=== PATIENT | female | born 1965 | race Caucasian/White ===

== ENCOUNTER 2019-09-27 10:45 | Observation (INO) | payer MEDICARE, OTHER ==
[~2019-09-27] VITALS: Ht 162.6 cm; Wt 52.9 kg
[2019-09-27] MEDS ORDERED: TRAM50 PO (11:19)
[2019-09-27] MEDS ORDERED: DULOXETINE HCL60 M1 PO (11:19)
[2019-09-27] MEDS ORDERED: OMEP20ER PO (11:20)
[2019-09-27] MEDS ORDERED: TRAZODONE HYDROCHLOR (11:20)
[2019-09-27 11:25] LABS: Source, Urine Catheter
[2019-09-27 11:29] LABS: BASOPHILS ABSOLUTE AUTO 0.04 K/mm3 (0.00-0.23); BASOPHILS PERCENT AUTO 1 % (0-2); EOSINOPHILS ABSOLUTE AUTO 0.03 K/mm3 (0.00-0.68); EOSINOPHILS PERCENT AUTO 0 % (0-6); Hemoglobin 13.5 g/dL (11.5-16.0); IMMATURE GRAN ABSOLUTE AUTO 0.03 K/mm3 (0.00-0.10); IMMATURE GRAN PERCENT AUTO 0 % (0-1); LYMPHOCYTES ABSOLUTE AUTO 2.67 K/mm3 (0.84-5.20); LYMPHOCYTES PERCENT AUTO 38 % (21-46); MONOCYTES PERCENT AUTO 7 % (4-13); Mean Corpuscular HGB 29.2 pg (26.0-34.0); Mean Corpuscular HGB Conc 32.9 g/dL (31.5-36.5); Mean Corpuscular Volume 89 fL (80-100); Mean Platelet Volume 10.7 fL (9.1-12.4); NEUTROPHILS ABSOLUTE AUTO 3.75 K/mm3 (1.96-9.15); NEUTROPHILS PERCENT AUTO 54 % (41-73); Platelet Count 264 K/mm3 (150-400); RDW Coefficient Variation 12.8 % (11.7-14.2); RDW Standard Deviation 41.5 fL (35.1-46.3); Red Blood Cell Count 4.63 M/mm3 (3.80-5.20); White Blood Cell Count 7.02 K/mm3 (4.00-11.30)
[2019-09-27 11:37] LABS: Appearance, Urine Clear (Clear); Bilirubin, Urine Neg (Neg); Blood, Urine Neg (Neg); Color, Urine Yellow (P-Yellow); Glucose Qualitative, Urine Neg (Neg); Ketones, Urine 2+ (Neg); Leukocyte Esterase, Urine Neg (Neg); Nitrite, Urine Neg (Neg); Protein, Urine Neg (Neg); Urobilinogen, Urine NORM (Normal)
[2019-09-27 11:42] LABS: Alanine Aminotransfer (ALT/SGP 22 U/L (12-78); Albumin, Blood 4.5 g/dL (3.4-5.0); Albumin/Globulin Ratio 1.2 (0.8-1.8); Alk Phos 87 U/L (50-136); Anion Gap 6 mmol/L (6-16); Aspartate Aminotrans (AST/SGOT 29 U/L (12-37); Bilirubin, Total 0.5 mg/dL (0.1-1.0); Blood Urea Nitrogen 12 mg/dL (8-24); Bun/Creatinine Ratio 18.5 (12.0-20.0); CO2, Blood 25 mmol/L (21-32); Calcium, Blood 9.3 mg/dL (8.5-10.1); Chloride, Blood 105 mmol/L (98-108); Creatinine, Blood 0.65 mg/dL (0.40-1.00); Ethanol (Alcohol), Blood, Med <3 mg/dL; Globulin, Blood 3.6 g/dL (2.2-4.0); Glomerular Filtration Rate >60 (60-); Glucose, Blood 99 mg/dL (70-99); Potassium, Blood 3.5 mmol/L (3.5-5.5); Sodium, Blood 136 mmol/L (136-145); Total Protein, Blood 8.1 g/dL (6.4-8.2)
[2019-09-27 11:53] LABS: U Amphetamine Screen Not Detected; U Barbituate Screen Not Detected; U Benzodiazapine Screen Not Detected; U Buprenorphine Screen Not Detected; U Cannabinoids Screen Not Detected; U Cocaine Screen Not Detected; U Methadone Screen Not Detected; U Methamphetamine Screen Not Detected; U Opiates Screen Not Detected; U Oxycodone Screen Not Detected; U Phencyclidine Screen Not Detected; U Propoxyphene Screen Not Detected
[2019-09-27] MEDS ORDERED: TRAZ50 PO (13:55)
[2019-09-27] MEDS ORDERED: PREGABALIN150 MG PO (13:57)
--- NOTE | 2019-09-27 17:09 | NUR ---
SHIFT SUMMARY. SPOKE WITH DR. ROBB ABOUT GETTING THE CIWA SCALE ORDERED BUT AT THIS TIME I DO NOT THINK THAT SHE NEEDS TO BE MEDICATED ALTHOUGH HER CIWA SCORE IS A 10. SHE HAS A HISTORY OF ANXIETY ALTHOUGH BEING ADMITTED TO THE HOSPITAL AND HAVING THE INABILITY TO EXPRESS HER CONCERNS HAS MADE HER ANXIETY HARDER. SHE IS OVER 24 HOURS OUT FROM HER LAST DRINK AND HAS A HISTORY OF ALCOHOL WITHDRAWAL AND REHABILITATION FOR BOTH ETOH AND DRUGS.
--- NOTE | 2019-09-27 21:24 | NUR ---
2018 PT A/O X2 TO SELF AND FAMILY. PT'S DAUGHTER AT BEDSIDE THIS TIME. I ASKED PT IF SHE KNEW WHERE SHE WAS, SHE HAS A VERY HARD TIME COMING UP WITH AN ANSWER AND DID NOT ANSWER. IT WAS ALMOST LIKE SHE WANTED TO SAY SOMETHING, BUT SOMETHING IS BLOCKING HER THOUGHTS. I GAVE HER OPTIONS OF IF SHE WAS AT A [facility], [facility], OR [facility]. SHE STATED [facility]. DAUGHTER AT BEDSIDE STATES PT GETS DISTRACTED FROM ROOM LIGHT BEING ON. ROOM LIGHT WAS SHUT OFF AND THEN PT WAS ABLE TO SAY SHE IS AT "[facility]". DAUGHTER REPORTS PT HAS HEIGHTENED SENSES. PT'S VISION HAS BEEN SENSITIVE TO THE COLORS GREEN AND RED RECENTLY. THE WRITING ON THE WHITEBOARD IN PT'S ROOM WAS WRITTEN IN RED. STAFF CHANGED WRITING TO BLACK MARKER. PT ALSO HAS A STRANGE AFFECT. WHEN I ASKED HER QUESTIONS, SHE CANNOT COME UP WITH AN ANSWER AND GIGGLES. CIWA SCORE OF 7. DAUGHTER STATES LAST DRINK WAS ON SATURDAY OR SATURDAY (09/24, 09/25). DAUGHTER NOT SURE HOW MUCH PT DRINKS BUT DAUGHTER REPORTS PT DRINKS EVERYDAY. PT APPEARS CALM LAYING IN BED. RECENTLY, PT HAS BEEN MOSTLY AFFECTED BY COLORS SUCH GREENS AND REDS. EVEN THE LITTLE LIGHTS ON SIDERAILS BOTHERS PT. PILLOWS WERE PROVIDED TO COVER UP THOSE LIGHTS. BED ALARM ON. WILL CONTINUE TO MONITOR. PT ALSO FEELS ITCHING AND BURNING ON SKIN. SCHEDULED BENADRYL GIVEN. PRN TYLENOL GIVEN FOR CHORNIC BACK PAIN.
--- NOTE | 2019-09-28 05:11 | NUR ---
[employer] PRINCIPAL SUMMARY PT A/O X3-4 THIS MORNING. HOWEVER IT TOOK PT A LONG TIME TO RESPOND AND TOOK ME A COUPLE TIMES TO ASK THE SAME QUESTION TO GET A RESPONSE. AT FIRST WHEN I ASKED PATIENT FOR HER NAME, SHE JUST GIGGLED AND STARED AT ME. WHEN PT WAS TAKEN TO THE BATHROOM WITH STANDBY ASSISTANCE OF CHEMICAL SALES REPRESENTATIVE. PT SAID "OW, THAT HURT YOU PINCHED ME" REAL LOUDLY WHEN CHEMICAL SALES REPRESENTATIVE DID NOT TOUCH PATIENT. WHEN PATIENT GOT BACK INTO BED, SHE STATED SHE WANTED "ICE". I ASKED PT IF SHE WANTED ICE TO CHEW ON OR ICE FOR PAIN, PT DID NOT ANSWER. I ASKED HER A SECOND TIME AND A THIRD TIME AND SHE RESPONDS WITH "I AM COLD". I COVERED PT UP WITH 2 BLANKETS. PT TOOK OFF TOP BLANKET AND DID NOT WANT IT. PT STATES HER HANDS ARE COLD. I COVERED HER HANDS TO WHICH SHE RESPONDS WITH "NO" AND UNCOVERS THEM. PT HAS VERY CONCRETE THINKING. CIWA SCORE OF 3 THIS MORNING. PT HAS HEIGHTEND SENSES TO SMELL AND SIGHT. PLEASE SEE PREVIOUS NOTE.
[2019-09-28 05:28] LABS: Hematocrit 39.6 % (33.0-51.0); Hemoglobin 12.6 g/dL (11.5-16.0); Mean Corpuscular HGB 28.4 pg (26.0-34.0); Mean Corpuscular HGB Conc 31.8 g/dL (31.5-36.5); Mean Corpuscular Volume 89 fL (80-100); Mean Platelet Volume 11.2 fL (9.1-12.4); Platelet Count 248 K/mm3 (150-400); RDW Coefficient Variation 13.2 % (11.7-14.2); Red Blood Cell Count 4.44 M/mm3 (3.80-5.20)
[2019-09-28 06:20] LABS: Anion Gap 6 mmol/L (6-16); Blood Urea Nitrogen 11 mg/dL (8-24); Bun/Creatinine Ratio 14.9 (12.0-20.0); CO2, Blood 23 mmol/L (21-32); Calcium, Blood 8.9 mg/dL (8.5-10.1); Chloride, Blood 113 mmol/L (98-108); Creatinine, Blood 0.74 mg/dL (0.40-1.00); Glomerular Filtration Rate >60 (60-); Glucose, Blood 96 mg/dL (70-99); Sodium, Blood 142 mmol/L (136-145)
--- NOTE | 2019-09-28 17:31 | NUR ---
PATIENT CONTINUES TO HAVE AMS. WHEN QUESTIONED CONTINUES TO HAVE INAPPROPRIATE RESPONSES AND TENDS TO GIGGLE OR JUST STARE AT TIMES NOT RESPONDING. OTHER TIMES SHE CAN ANSWER APPROPRIATELY, BUT IS VERY SLOW TO RESPOND. SHE DESCRIBES HER VISION AT "HOT" OR "RED." PATIENT VERY NAUSEATED WITH ANY FOOD. HYPERSENSTIVE TO LIGHT, SMELL, TOUCH AND CERTAIN BRIGHT COLORS. VERY ANXIOUS THIS EVENING AND PAINFUL. SPOKE WITH DR. CASTRO WHO ORDERED TO CONTINUE TO GIVE TORADOL AND TYLENOL AND RESTART CYMBALTA AND OMEPRAZOLE. HEAT PACK GIVEN TO EASE PAIN. DAUGHTER ZULLY AND PATIENTS SISTER AT BEDSIDE INTERMITTENTLY THROUGHOUT THE DAY. 20G IV TO L FA WNL AND SL. SKIN INTACT. VSS, ON RA. ZOFRAN WORKED WELL TO TREAT NAUSEA. TAKES PILLS WHOLE WITH WATER. GAIT STEADY, SBA DUE TO MENTATION.
[2019-09-29 05:51] LABS: BASOPHILS ABSOLUTE AUTO 0.03 K/mm3 (0.00-0.23); BASOPHILS PERCENT AUTO 0 % (0-2); EOSINOPHILS ABSOLUTE AUTO 0.02 K/mm3 (0.00-0.68); EOSINOPHILS PERCENT AUTO 0 % (0-6); Hematocrit 38.3 % (33.0-51.0); Hemoglobin 12.4 g/dL (11.5-16.0); IMMATURE GRAN ABSOLUTE AUTO 0.02 K/mm3 (0.00-0.10); IMMATURE GRAN PERCENT AUTO 0 % (0-1); LYMPHOCYTES ABSOLUTE AUTO 2.43 K/mm3 (0.84-5.20); LYMPHOCYTES PERCENT AUTO 33 % (21-46); MONOCYTES ABSOLUTE AUTO 0.85 K/mm3 (0.16-1.47); MONOCYTES PERCENT AUTO 12 % (4-13); Mean Corpuscular HGB 28.5 pg (26.0-34.0); Mean Corpuscular HGB Conc 32.4 g/dL (31.5-36.5); Mean Corpuscular Volume 88 fL (80-100); Mean Platelet Volume 11.1 fL (9.1-12.4); NEUTROPHILS ABSOLUTE AUTO 3.98 K/mm3 (1.96-9.15); NEUTROPHILS PERCENT AUTO 54 % (41-73); Platelet Count 244 K/mm3 (150-400); RDW Standard Deviation 42.6 fL (35.1-46.3); Red Blood Cell Count 4.35 M/mm3 (3.80-5.20); White Blood Cell Count 7.33 K/mm3 (4.00-11.30)
--- NOTE | 2019-09-29 06:11 | NUR ---
SHIFT SUMMARY- PT. ALERT BUT DISORIENTED AND SLOW TO RESPOND. NOTED TO BE ANXIOUS AND AGITATED LAST NIGHT. C/O GENERALIZED PAIN, CIWA OF 19 @1721 AND PM CIWA SCORE OF 11. NOTIFIED HOSPITALIST DR. ATKINSON, RECEIVED CIWA MED ORDER. MEDICATED PT. WITH ATIVAN AND PAIN MED PER EMAR WITH GOOD EFFECT. FOLLOWING CIWA SCORE 10, PT. MEDICATED WITH SECOND DOSE OF ATIVAN WITH GOOD RELIEF. PT. WAS ABLE TO SLEEP THE REST OF THE NIGHT. REASSESSMENT OF CIWA NEG. PT. UP TO THE BATHROOM X1 ABLE TO VOID W/O DIFFICULTY, ASSISTED BACK INTO BED. PT. RESTING QUIETLY IN BED AT THIS TIME, NO APPARENT DISTRESS NOTED. CALL LIGHT WITHIN REACH AND SIDE RAILS UPX2. WILL CONT TO MONITOR.
[2019-09-29 06:19] LABS: Alanine Aminotransfer (ALT/SGP 20 U/L (12-78); Albumin, Blood 3.8 g/dL (3.4-5.0); Albumin/Globulin Ratio 1.1 (0.8-1.8); Alk Phos 72 U/L (50-136); Anion Gap 5 mmol/L (6-16); Aspartate Aminotrans (AST/SGOT 20 U/L (12-37); Bilirubin, Total 0.5 mg/dL (0.1-1.0); Blood Urea Nitrogen 20 mg/dL (8-24); Bun/Creatinine Ratio 26.1 (12.0-20.0); CO2, Blood 24 mmol/L (21-32); Calcium, Blood 9.2 mg/dL (8.5-10.1); Chloride, Blood 114 mmol/L (98-108); Creatinine, Blood 0.77 mg/dL (0.40-1.00); Globulin, Blood 3.4 g/dL (2.2-4.0); Glomerular Filtration Rate >60 (60-); Glucose, Blood 97 mg/dL (70-99); Potassium, Blood 3.8 mmol/L (3.5-5.5); Sodium, Blood 143 mmol/L (136-145); Total Protein, Blood 7.2 g/dL (6.4-8.2)
--- NOTE | 2019-09-29 16:59 | NUR ---
ASSUMED PT CARE. TRANSFER FROM SCU RM 352 TO MED 338 PT AMBULATE TO ROOM ACCOMPANIED BY SONJA MCKNIGHT RN & PT'S SISTER. SHE IS A/O X3 @ THIS TIME, INTERACTING w SISTER, LUZ MARIA @ INTRODUCTION. REPORT RECIEVED.
--- NOTE | 2019-09-29 17:07 | NUR ---
SHIFT SUMMARY PATIENT MEDICATED X1 FOR PAIN AND X2 FOR NAUSEA. DENIES SHORTNESS OF BREATH. PATIENT UP SBA W/FWW. PATIENT ANSWERS ORIENTATION QUESTIONS CORRECTLY BUT CAN BE CONFUSED AT TIMES. CIWAS BETWEEN 4 AND 5 TODAY. FAMILY AT BEDSIDE. TRAE CONSULTED. PATIENT TRANSFERED OUT OF SCU TO MAIN FLOOR. POSSIBLE DISCHARGE TOMORROW. REPORT GIVEN TO JOE MORROW.
--- NOTE | 2019-09-29 22:33 | NUR ---
ANGELICA Whalen called on CIWA score of 19 due to nausea & reported dry heaves headache light sensitivity anxiety & restlessness & unsure of month or day but able to add serial additions quickly. Medicated with the PRN melatonin 3 mg To promote sleep. Family at bedside & supportive. PT recently moved from [facility] to live with Sister Elisha who would like PT to be DC to rehab center for substance abuse treatment. PT has several other Sisters here & DTR at bedside. PT using 14 mg nicotine patch asks for nicotine gum for tobacco addiction. CO very poor oral intake has dark jim urine. CO burning with urination. Request for UA declined, encourage oral fluids. Provided ensure & pudding at bedside. Up in hallway ambulating with FWW with steady gait. PT CO headache of 9/10 despite tylenol 650 mg 1.5 hours earlier. PT has psych eval pending. Will write social work referral for assist with DC plan, to involve adult Daughter & provide resources for inpatient rehab for PT's polysubstance abuse & resources to get primary care provider in area. LOC clearing but head CT shows atrophy beyond normal for age. PT appears frail, thin, weak. ANGELICA Swan gives 1 x order for Benadryl oral for elevated CIWA. Last ETOH was last Saturday.
--- NOTE | 2019-09-29 23:09 | NUR ---
PT resting quietly after melatonin, did not administer benadryl 1 time order yet due to appears to be resting well. Ambulated earlier on unit with family & FWW. PT drank 1 ensure has multiple snacks at bedside provided by family. Will provide another ensure.
--- NOTE | 2019-09-30 00:48 | NUR ---
PT slept soundly for several hours on melatonin 3 mg. Drank 1 chocolate ensure provided at bedside. Woke up requesting sleep aide & BENADRYL 25 MG PO PROVIDED. Provided another juany ensure at bedside & PT drank all with med. Offered tylenol for ongoing headache & PT accepted. Denied nausea then asked if she could have zofran so IV rx given. Provided yogurt grahm crackers & vanilla ensure at bedside. Score on CIWA down to 10 currently. PT has multiple family in area. Continues to desire treatment for ETOH & polysubstance dependancy.
--- NOTE | 2019-09-30 05:54 | NUR ---
Pt drank 3rd ensure when I left it at bedside table set up & cues, left 2 small yogurts & grahm crackers & she ate them too. Will add ensure supplements to meals & set some at bedside. PT with generalized pain withdrawing from high dose lyrica 150 mg TID & PRN ultram & oxycodone for fibromyalgia. PT keeps asking for sleeping medication but already had melatonin & 1 time dose of benadryl 25 mg. She says she misses her Family. Has 4 adult Children 7 Grandchildren. Won't say what she drinks OR FOR HOW LONG.
--- NOTE | 2019-09-30 07:30 | NUR ---
ASSUMED PATIENT CARE. PATIENT RESTING COMFORTABLY IN BED, NO SIGNS OF ACUTE DISTRESS. CONVERSING WITH NURSING STAFF, GABRIELA.
--- NOTE | 2019-09-30 09:19 | NUR ---
PATIENT CIWA SCORE OF 14, PATIENT ENDORSES 10/10 PAIN, NAUSEA AND HEADACHE. DR. CASTRO NOTIFIED, NO NEW ORDERS GIVEN.
[2019-09-30] MEDS ORDERED: FAMO20 PO (11:04)
[2019-09-30] MEDS ORDERED: Nicoderm Cq1 EAC1 TOP (11:05)
[2019-09-30] MEDS ORDERED: MELA3 PO (11:05)
[2019-09-30] MEDS ORDERED: B-1100 M1 PO (11:06)
[2019-09-30] MEDS ORDERED: NAPR220 PO (11:10)
[2019-09-30] MEDS ORDERED: PREG75 PO (11:11)
[2019-09-30] MEDS ORDERED: Vitamin D2000 UNIT PO (11:12)
[2019-09-30] MEDS ORDERED: ALPR.25 PO (11:16)
--- NOTE | 2019-09-30 11:40 | NUR ---
PATIENT PROVIDED DISCHARGE INFO REGARDING FOLLOW UP PLANS, MEDICATION INFO, AND REASONS TO RETURN TO HOSPITAL. PATIENT VERBALIZED UNDERSTANDING, NO SIGNS OF ACUTE DISTRESS.
== END 2019-09-30 12:00 | disposition home or self-care (01) ==
LOC: ER 10:45 → MEDS 10:46
PROVIDERS: Internal Medicine; Nurse Practitioner Acute Care; Physician Assistant; ADMIT Internal Medicine
DX: G92 Toxic encephalopathy (principal); F10.20 Alcohol dependence, uncomplicated; F17.210 Nicotine dependence, cigarettes, uncomplicated; M79.7 Fibromyalgia; R03.0 Elevated blood-pressure reading, without diagnosis of hypertension; Z87.11 Personal history of peptic ulcer disease; Z79.899 Other long term (current) drug therapy; Y90.0 Blood alcohol level of less than 20 mg/100 ml
CPT/HCPCS: 36415; 70450; 80048; 80053; 81003; 82947; 84443; 85025; 85027; 93005; 93010; 96365; 96372; 96375; 96376; 99285-25; A9270; A9270-GY; G0378; G0480; J1650; J1885; J2060; J2405; J3411; Q0163

== ENCOUNTER → 2021-01-30 | Outpatient (CLI) | payer MEDICARE, OTHER ==
[~2021-01-30] MED LIST: ALPR.25 PO; B-1100 M1 PO; DULOXETINE HCL60 M1 PO; FAMO20 PO; MELA3 PO; NAPR220 PO; Nicoderm Cq1 EAC1 TOP; OMEP20ER PO; PREG75 PO; PREGABALIN150 MG PO; TRAM50 PO; TRAZ50 PO; TRAZODONE HYDROCHLOR; Vitamin D2000 UNIT PO
== END ==
LOC: LAB SHORT 16:28 → LAB 16:28
DX: R30.0 Dysuria (principal)
CPT/HCPCS: 87077; 87086; 87186

== ENCOUNTER 2021-03-15 11:16 | Emergency (ER) | payer MEDICARE, OTHER ==
[~2021-03-15] VITALS: Ht 162.6 cm; Wt 54.4 kg
[2021-03-15 12:10] LABS: Calcium, Ionized (POC) 1.31 mmol/L (1.10-1.46); Chloride (POC) 105 mmol/L (98-108); Creatinine (POC) 0.7 mg/dL (0.6-1.0); Glucose (ISTAT POC) 113 mg/dL (70-99); Hemoglobin (POC) 13.9 g/dL (12.0-16.0); Potassium (POC) 4.4 mmol/L (3.5-5.5); Sodium (POC) 141 mmol/L (135-148); Total CO2 (POC) 25 mmol/L (21-32)
[2021-03-15] MEDS ORDERED: ONDA4ODT MM (13:49)
== END 2021-03-15 14:02 | disposition home or self-care (01) ==
LOC: ER 11:16
DX: U07.1 COVID-19 (principal)
CPT/HCPCS: 72040; 80047; 85014; 99283-25

== ENCOUNTER → 2021-10-12 | Outpatient (CLI) | payer MEDICARE, OTHER ==
[~2021-10-12] MED LIST changes: +ONDA4ODT MM
== END | disposition home or self-care (01) ==
LOC: LAB 10:05 → LAB SHORT 10:05
DX: N39.0 Urinary tract infection, site not specified (principal)
CPT/HCPCS: 87077; 87086; 87186

== ENCOUNTER 2022-07-07 12:40 | Emergency (ER) | payer MEDICARE ==
[~2022-07-07] VITALS: Ht 160 cm; Wt 59.0 kg
[2022-07-07 13:18] VITALS: BP 150/85
[2022-07-07] MEDS ORDERED: Bactrim Ds Tab1 EACH PO (13:20)
== END 2022-07-07 13:30 | disposition home or self-care (01) ==
LOC: ER 12:40
DX: L08.9 Local infection of the skin and subcutaneous tissue, unspecified (principal); F17.210 Nicotine dependence, cigarettes, uncomplicated
CPT/HCPCS: 87070; 87077; 87186; 87205; 99283

== ENCOUNTER → 2024-05-21 | Outpatient (CLI) | payer MEDICARE, OTHER ==
[~2024-05-21] MED LIST changes: +Bactrim Ds Tab1 EACH PO
[2024-05-21 17:37] LABS: BASOPHILS ABSOLUTE AUTO 0.02 K/mm3 (0.00-0.23); BASOPHILS PERCENT AUTO 0 % (0-2); EOSINOPHILS ABSOLUTE AUTO 0.17 K/mm3 (0.00-0.68); EOSINOPHILS PERCENT AUTO 2 % (0-6); Hematocrit 36.1 % (33.0-51.0); Hemoglobin 11.8 g/dL (11.5-16.0); IMMATURE GRAN ABSOLUTE AUTO 0.02 K/mm3 (0.00-0.10); IMMATURE GRAN PERCENT AUTO 0 % (0-1); LYMPHOCYTES ABSOLUTE AUTO 3.76 K/mm3 (0.84-5.20); LYMPHOCYTES PERCENT AUTO 46 % (21-46); MONOCYTES PERCENT AUTO 7 % (4-13); Mean Corpuscular HGB 29.1 pg (26.0-34.0); Mean Corpuscular HGB Conc 32.7 g/dL (31.5-36.5); Mean Corpuscular Volume 89 fL (80-100); Mean Platelet Volume 11.2 fL (9.1-12.4); NEUTROPHILS ABSOLUTE AUTO 3.69 K/mm3 (1.96-9.15); NEUTROPHILS PERCENT AUTO 45 % (41-73); Platelet Count 285 K/mm3 (150-400); RDW Coefficient Variation 13.6 % (11.7-14.2); RDW Standard Deviation 44.4 fL (35.1-46.3); Red Blood Cell Count 4.05 M/mm3 (3.80-5.20); White Blood Cell Count 8.26 K/mm3 (4.00-11.30)
[2024-05-21 20:52] LABS: Bun/Creatinine Ratio 20.6 (12.0-20.0); Calcium, Blood 9.5 mg/dL (8.5-10.1); Creatinine, Blood 0.78 mg/dL (0.40-1.00); Potassium, Blood 3.9 mmol/L (3.5-5.5)
== END ==
LOC: LAB 15:39 → LAB SHORT 15:39
PROVIDERS: Nurse Practitioner Family
DX: N39.0 Urinary tract infection, site not specified (principal)
CPT/HCPCS: 80048; 85025; 87086

== ENCOUNTER 2024-11-12 06:33 | Day surgery (SDC) | payer MEDICARE, OTHER ==
[~2024-11-12] VITALS: Ht 162.6 cm; Wt 54.8 kg
[2024-11-12] MEDS ORDERED: TRAZ50 (07:02)
[2024-11-12] MEDS ORDERED: TRAMADOL HCL E200 MG (07:02)
[2024-11-12] MEDS ORDERED: OMEP20ER (07:03)
[2024-11-12 08:52] VITALS: BP 97/74
== END 2024-11-12 08:54 | disposition home or self-care (01) ==
LOC: ORSCSDS 06:33
PROVIDERS: Internal Medicine Gastroenterology
PROC: 0DJ08ZZ Inspection of Upper Intestinal Tract, Via Natural or Artificial Opening Endoscopic (ICD-10-PCS; principal; 2024-11-12 08:00)
DX: R10.13 Epigastric pain (principal); R11.0 Nausea; Z87.11 Personal history of peptic ulcer disease; R19.4 Change in bowel habit; M79.7 Fibromyalgia; Z79.899 Other long term (current) drug therapy; Z87.891 Personal history of nicotine dependence
CPT/HCPCS: J2704; J7120

== ENCOUNTER → 2025-01-06 | Outpatient (CLI) | payer MEDICARE, OTHER ==
[~2025-01-06] MED LIST changes: +OMEP20ER; +TRAMADOL HCL E200 MG; +TRAZ50
[2025-01-06 13:06] LABS: Hematocrit 37.4 % (33.0-51.0); Hemoglobin 12.0 g/dL (11.5-16.0); Mean Corpuscular HGB Conc 32.1 g/dL (31.5-36.5); Mean Corpuscular Volume 91 fL (80-100); NRBC ABSOLUTE 0.00 K/mm3 (0.00-0.02); NRBC Auto 0.0 /100 WBC (0.0-0.2); Platelet Count 260 K/mm3 (150-400); RDW Coefficient Variation 13.2 % (11.7-14.2); RDW Standard Deviation 44.0 fL (35.1-46.3)
[2025-01-06 17:28] LABS: Alanine Aminotransfer (ALT/SGP 23.0 U/L (12-78); Albumin, Blood 3.8 g/dL (3.4-5.0); Albumin/Globulin Ratio 1.2 (0.8-1.8); Anion Gap 6.0 mmol/L (3-11); Aspartate Aminotrans (AST/SGOT 21.0 U/L (12-37); Bilirubin, Total 0.3 mg/dL (0.1-1.0); Blood Urea Nitrogen 21.0 mg/dL (8-24); CO2, Blood 28.0 mmol/L (21-32); Calcium, Blood 9.8 mg/dL (8.5-10.1); Chloride, Blood 107.0 mmol/L (98-108); Creatinine, Blood 0.75 mg/dL (0.40-1.00); Globulin, Blood 3.3 g/dL (2.2-4.0); Glucose, Blood 99.0 mg/dL (70-99); Potassium, Blood 4.2 mmol/L (3.5-5.5); Sodium, Blood 137.0 mmol/L (136-145); Total Protein, Blood 7.1 g/dL (6.4-8.2)
== END ==
LOC: LAB SHORT 11:38 → LAB 11:38
DX: R10.13 Epigastric pain (principal)
CPT/HCPCS: 36415; 80053; 85027; 87338